=== PATIENT | female | born 1960 ===

== ENCOUNTER → 2018-11-06 | Outpatient (REF) ==
--- NOTE | 2018-11-06 13:20 | REP ---
RIGHT KNEE SERIES: Five views of the right knee are performed. No acute fracture or dislocation is seen. Joint spaces appear unremarkable. No definite effusion is seen. IMPRESSION: Unremarkable right knee series. Further evaluation may be made with MRI if clinically indicated. Electronically Signed by Juan Hicks MD 11/06/2018 03:29 P
--- NOTE | 2018-11-06 13:23 | REP ---
RIGHT HIP, TWO VIEWS: Two views of the right hip are performed. There is no fracture or dislocation. Joint space appears unremarkable. Metallic clips are seen in the pelvis. IMPRESSION: Negative right hip. Electronically Signed by Juan Hicks MD 11/06/2018 03:29 P
== END ==
LOC: M SMT 12:06
PROVIDERS: ATTEND Internal Medicine
DX: Z00.00 Encounter for general adult medical examination without abnormal findings (principal)